=== PATIENT | male | born 2000 | race African-American/Black ===

== ENCOUNTER 2022-06-01 17:15 | Emergency (ER) | payer OTHER, SELFPAY ==
[2022-06-01 17:27] VITALS: BP 116/58; PULSE 80; RESP 18; TEMP 36.4; O2SAT 99; BMI 22.1
--- NOTE | 2022-06-01 21:25 | PC.NURSE ---
per PCT pt refusing vitals, nurse encountered pt in the hallway, attempted to de-escalate pt, allowed pt to express frustrations re:being here for 5 hours. author apologized for the long wait and explained that there are many pts in the dept waiting to be seen. pt stated to nurse i want to be seen by a doctor now, you all need to xray my eye! pt continued to demand a provider, security present, also attempted to redirect pt. pt stated I dont want to see jessa in my room but the doctor NAHUN
--- NOTE | 2022-06-01 22:40 | PC.NURSE ---
pt continues to speak loudly, cursing on the phone, in and out of room, walking with steady gait. no new orders from provider at this time, mikey
--- NOTE | 2022-06-01 22:40 | ED.GENADULT ---
HPI - General Adult General Chief complaint: Eye Problems Stated complaint: Loss vision on R eye Time Seen by Provider: 06/01/22 21:44 Source: patient Mode of arrival: ambulatory Limitations: no limitations History of Present Illness HPI narrative: 22 yold male presents to the ED for evaluation of right eye. patient states earlier in the day he was resting in his car and than he started rubbing his right eye hard. When he opened his eyes patient states right eye vision was black and white in color, became rico and red, and that back to normal vision. patient presently is asympomatic. Patient denies any slurred speech, facial droop, headache, paralysis of extremities, or total loss of vision. patient states since right eye injury 2 years ago and at time has had right eye issues. Patient denies any blunt recent eye trauma or contact use. Related Data Allergies Allergy/AdvReac Type Severity Reaction Status Date / Time No Known Allergies Allergy Verified 06/01/22 21:39 Review of Systems Review of Systems: RIght eye vision color change Yes all other systems are reviewed and are negative [facility] Social History Social History Advance Directives: No Advance Directives Information Provided: Yes Physical Exam ED Vital Signs: Vital Signs - 24 hr 06/01/22 17:27 Temperature 97.6 F Pulse Rate 80 Respiratory Rate 18 Blood Pressure 116/58 L Pulse Oximetry 99 Oxygen Delivery Method Room Air BMI result Body Mass Index 22.1 Const General: cooperative, healthy appearing, comfortable, no acute distress, well developed, alert, awake and Physically active Orientation/consciousness: oriented to person, oriented to place, oriented to time and patient oriented x3 HENMT Head: Yes normal to inspection, Yes No palpable skull fracture present, Yes normocephalic, Yes atraumatic and No abrasion Eyes Other: Right eye: negative for any erythema of conjuctiva, eyelids swelling, eye discharge, foreign body, photophobia, corneal abrasions, or corneal ulcers. eye is normal. Patient vision in all visual jones/quadrants on exam intact. Eye muscles inta Left eye is normal. Visusion normal. Patient vision in all visual jones/quadrants on exam intact. Eye muscles inta Patient vision in all visual jones/quadrants on exam intact. Eye muscles intact. General: appearance normal, both eyes and all related structures Neck Neck: Yes normal visual inspection, Yes full ROM, Yes no lymphadenopathy, Yes no meningeal signs, Yes trachea midline, Yes supple, No anterior neck swelling and No tender Chest Chest palpation & inspection: normal inspection of the chest and normal palpation of entire chest wall Resp Effort & Inspection: normal respiratory effort and able to speak in complete sentences Auscultation: clear to auscultation bilaterally Cardio Jugular venous distension: no JVD Heart sounds: S1 normal heart sound present and S2 normal heart sound present GI Inspection: Yes normal to inspection and No abdominal wall ecchymosis Palpation (GI): Soft to palpation, not firm, nontender, no guarding and not rigid General: No CVA tenderness and Yes no CVA tenderness Back/Spine/Pelvis Back: no CVA tenderness, No CVA tenderness and No back tenderness Skin General skin exam: no rashes or lesions noted and elasticity normal Neuro Other: NIH SCore is 0. General: oriented to person, oriented to place, oriented to time, patient oriented x3, gait normal, tone normal, moves all extremities, Normal light touch and pain sensation, no meningeal signs, no focal motor deficits, CN's II-XI intact bilaterally and normal sensation to monofilament Extrem General: Yes normal to inspection and Yes full ROM Psych Appearance: grossly normal, well kempt and not disheveled Course Course Course Narrative: History and Physical exam does not indicate Stroke or TIA. Reevaluation(s) Reevaluation #1: Case discussed with Dr. Humphrey who agrees patient is not having stroke or TIA and no head CT indicated. most likely he states patieint rubbed his right eye hard and was pressing on his retina and caused momentarily visual changes and resolved immedatey. patient denies any eye pain. Patient given refierral to optholomist DR. Garcia. patient visual acuity in both eyse 20/25. Negative for any neuro deficitis. NIH score is 0. Medical Decision Making Medical Decision Making MDM Narrative: 22 yold male Right color visual changes after rubbing right eye hard while sleeping in his car. No neuro sympomts. Discharge Plan Discharge Clinical Impression: Visual color changes Patient Disposition: Home, Self-Care Instructions: Blurred Vision (ED) Additional Instructions: You will need follow-up with chalk tester. No need for further evaluation in the ER. Return to the ED for any facial droop, loss of vision, paralysis of extremities, nausea, vomiting, headache, eye redness, watery discharge from the eyes, or any other concerning symptoms. Referrals: Suraj Garcia [Physician] - ( one episode of Visual changes to right eye that resolved on its own. ) Interventions: ED Discharge Assessment Last Done: 06/01/22 22:48 Discharge Date/Time: 06/01/22 22:49 Print Language: Georgian
== END 2022-06-01 22:49 | disposition home or self-care (01) ==
PROVIDERS: Emergency Provider Emergency Medicine Emergency Medical Services
DX: H54.3 Unqualified visual loss, both eyes (principal)
CPT/HCPCS: 99283